=== PATIENT | male | born 1960 | race Native Hawaiian/Other Pacific Islander ===

== ENCOUNTER 2021-03-01 20:00 | Inpatient (IN) | payer OTHER ==
[~2021-03-01] VITALS: Ht 180.3 cm; Wt 123.1 kg
[2021-03-01 22:15] LABS: PLATELET COUNT 201 K/uL (142-355)
[2021-03-01 23:02] LABS: POTASSIUM 3.9 mmol/L (3.6-5.2)
[2021-03-02] VITALS (7 sets, daily range): BP systolic 112–148; BP diastolic 68–89; TEMP 98.4–102.4; Ht 180.3 cm; Wt 123.1 kg
[2021-03-02 06:33] LABS: PLATELET COUNT 189 K/uL (142-355)
[2021-03-02 07:11] LABS: POTASSIUM 3.7 mmol/L (3.6-5.2)
[2021-03-03] VITALS (9 sets, daily range): BP systolic 93–146; BP diastolic 51–100; TEMP 98–102.2
[2021-03-03 05:41] LABS: PLATELET COUNT 174 K/uL (142-355)
[2021-03-03 06:28] LABS: POTASSIUM 3.5 mmol/L (3.6-5.2)
[2021-03-03 12:30] LABS: PLATELET COUNT 137 K/uL (142-355)
[2021-03-03 12:49] LABS: POTASSIUM 4.3 mmol/L (3.6-5.2)
[2021-03-04 00:01] VITALS: TEMP 98.8
[2021-03-04 04:00] VITALS: TEMP 99
[2021-03-04 08:00] VITALS: TEMP 97.6
[2021-03-04 09:05] LABS: PLATELET COUNT 156 K/uL (142-355)
[2021-03-04 09:43] LABS: POTASSIUM 3.5 mmol/L (3.6-5.2)
[2021-03-04 16:00] VITALS: TEMP 98
[2021-03-05] VITALS (12 sets, daily range): BP systolic 109; BP diastolic 58; TEMP 96.2–98
[2021-03-05 05:44] LABS: PLATELET COUNT 149 K/uL (142-355)
[2021-03-05 05:55] LABS: POTASSIUM 3.2 mmol/L (3.6-5.2)
[2021-03-06] VITALS: TEMP 96.5
[2021-03-06 04:00] VITALS: TEMP 96
[2021-03-06 05:42] LABS: PLATELET COUNT 153 K/uL (142-355)
[2021-03-06 06:30] VITALS: BP 108/55
[2021-03-06 06:48] LABS: POTASSIUM 3.3 mmol/L (3.6-5.2)
[2021-03-06 07:00] VITALS: BP 128/65
[2021-03-06 08:00] VITALS: BP 132/66
[2021-03-06 22:00] VITALS: TEMP 98.1
[2021-03-07] VITALS (9 sets, daily range): BP systolic 124–148; BP diastolic 60–67; TEMP 97.3–98.6
[2021-03-07 06:34] LABS: PLATELET COUNT 188 K/uL (142-355)
[2021-03-07 07:19] LABS: POTASSIUM 4.6 mmol/L (3.6-5.2)
[2021-03-08 00:01] VITALS: TEMP 96.5
[2021-03-08 04:00] VITALS: TEMP 96.4
[2021-03-08 07:17] LABS: PLATELET COUNT 196 K/uL (142-355)
[2021-03-08 07:36] LABS: POTASSIUM 4.5 mmol/L (3.6-5.2)
[2021-03-08 16:45] LABS: PLATELET COUNT 206 K/uL (142-355)
[2021-03-08 17:11] LABS: POTASSIUM 4.2 mmol/L (3.6-5.2)
== END 2021-03-08 19:45 | disposition short-term general hospital (02) | DRG 4 ==
LOC: MED/SURG 20:00 → ICU 03-03 09:00
PROVIDERS: ADMIT Family Medicine; ATTEND Family Medicine
PROC: 5A1955Z Respiratory Ventilation, Greater than 96 Consecutive Hours (ICD-10-PCS; principal; 2021-03-03)
PROC: 0B110F4 Bypass Trachea to Cutaneous with Tracheostomy Device, Open Approach (ICD-10-PCS; 2021-03-03)
PROC: 05HM33Z Insertion of Infusion Device into Right Internal Jugular Vein, Percutaneous Approach (ICD-10-PCS; 2021-03-03)
PROC: B543ZZA Ultrasonography of Right Jugular Veins, Guidance (ICD-10-PCS; 2021-03-03)
DX: U07.1 COVID-19 (principal); J12.82 Pneumonia due to coronavirus disease 2019; J96.01 Acute respiratory failure with hypoxia; I46.9 Cardiac arrest, cause unspecified; J80 Acute respiratory distress syndrome; A41.89 Other specified sepsis; I21.4 Non-ST elevation (NSTEMI) myocardial infarction; N17.8 Other acute kidney failure; G97.81 Other intraoperative complications of nervous system; G93.1 Anoxic brain damage, not elsewhere classified; E87.4 Mixed disorder of acid-base balance; K92.2 Gastrointestinal hemorrhage, unspecified; I10 Essential (primary) hypertension; Y65.8 Other specified misadventures during surgical and medical care; Y92.230 Patient room in hospital as the place of occurrence of the external cause; E87.5 Hyperkalemia; E86.0 Dehydration; E87.6 Hypokalemia; E87.8 Other disorders of electrolyte and fluid balance, not elsewhere classified; E88.09 Other disorders of plasma-protein metabolism, not elsewhere classified; D64.89 Other specified anemias
CPT/HCPCS: 31500; 36415; 36571; 36600; 36620; 80048; 80053; 80202; 82550; 82553; 82570; 82728; 82805; 83605; 83735; 83880; 83935; 84100; 84300; 84484; 85007; 85014; 85018; 85027; 85379; 86140; 86900; 86901; 87040; 87635; 93005; 94002; 94003; 94640; 94664; 94667; 94668; 94760; J0171; J0456; J0696; J0744; J1100; J1265; J1650; J1815; J1940; J2020; J2060; J2250; J2270; J2543; J2930; J3370; J3490; P9017; P9047; U0003